=== PATIENT | female | born 1970 | race Caucasian/White ===

== ENCOUNTER 2022-05-24 12:45 | Emergency (ER) | payer BC, SELFPAY ==
[2022-05-24 13:02] VITALS: BP 159/97; PULSE 99; RESP 18; TEMP 36.8; O2SAT 95; BMI 23.6
--- NOTE | 2022-05-24 13:15 | W.ED.GENADLT ---
HPI - General Adult General: Chief complaint: General Medical Stated complaint: chest hurts and right leg hurts also. Time Seen by Provider: 05/24/22 13:14 History of Present Illness: Patient is a 52-year-old female w/ a family hx of factor 5 leiden deficiecy presents the emergency room with complaints of constipation, difficulty sleeping, inability to take full breath, abdominal bloating, and fatigue for the last month. Patient tells me that since a month ago, patient has had irregular stooling. Patient never had any abdominal symptoms including cramps, bloating however has been having symptoms in the last month. Earlier this week, patient noticed that she was constipated and took some milk of magnesia along with an enema with relief of symptoms. Patient denies any diarrhea melena hematochezia. Patient tells me that she has had decreased appetite during this time. In addition, over the last week, patient reports inability to take a full breath. Patient is followed by [facility]. Recent PCP recently started patient on doxycycline since patient has had recent tick exposure in the last month. Patient has not noticed any rash, vomiting or body aches or chills. However, patient took 2 days worth of doxycycline however cannot hold it down anymore due to upset stomach. Patient denies any prior abdominal surgery, no urinary complaints or true renal colic. Patient has any cough, runny nose, sore throat, or chest pain. Patient in the past has had a DVT during her 20 years ago. Patient is currently not on any blood thinner. Patient has never been formally diagnosed for factor V Leiden deficiency. Onset: 1 month ago Duration:1 month Location:home Severity:moderate Associated symptoms: Deny chest pain, dyspnea, nausea, rash, palpitations or vomiting Review of Systems Const: Denies: fever(s) or chills Eyes: Denies: change in vision ENMT: Denies: mouth pain Card: Denies: chest pain or palpitations Resp: Reports: other (+inability to take a full breath); Denies: dyspnea or non-productive cough GI: Reports: other (+constipation, abdominal discomfort and bloating, decreased appetite); Denies: abdominal pain, nausea, vomiting or diarrhea : Denies: dysuria Musc: Denies: extremity pain Skin/Breast: Denies: rash or new lesions Neuro: Denies: weakness in extremities Psych: Reports: other (Normal mood) Michael/Lymph: Denies: easy bruising PFSH ED PFSH: Medical History DVT (deep venous thrombosis) Family History Other Clotting disorder Social History Smoking and tobacco status: never smoked Alcohol intake: never Physical Exam Const: COMMON NORMALS: alert HENMT: COMMON NORMALS: atraumatic HEAD & SCALP: atraumatic MOUTH: moist mucous membranes not abnormal Eye: COMMON NORMALS: EOMs intact bilaterally and conjunctivae normal CONJUNCTIVA: Yes conjunctivae normal Neck/C-Spine: COMMON NORMALS: full ROM and supple Resp: COMMON NORMALS: normal respiratory effort and clear to auscultation bilaterally AUSCULTATION: clear to auscultation bilaterally Cardio: COMMON NORMALS: regular rate RATE: regular rate OTHER: 2+ radial pulses b/l GI: COMMON NORMALS: Soft to palpation and non-tender PALPATION: Yes Soft to palpation OTHER: No focal TTP. NO guarding rebound, guarding, rigidity. No CVA tenderness to percussion. Neg Lebron/Neg McBurney's point tenderness, no suprabupic tenderness to palpation. Extremity: COMMON NORMALS: full ROM OTHER: No colby's signs b/l Neuro: SENSORIUM/ORIENTATION: Yes alert MOTOR EXAM: No Abnormal motor strength present and Other motor observations present (no focal motor deficits) Psych: COMMON NORMALS: speech normal SPEECH: Yes normal speech MOOD & AFFECT: Yes euthymic mood Course Vital Signs: Vital signs: Vital Signs Temperature 98.2 F 05/24/22 13:02 Pulse Rate 77 05/24/22 18:18 Respiratory Rate 18 05/24/22 13:02 Blood Pressure 134/85 05/24/22 18:18 Pulse Oximetry 98 05/24/22 18:18 Oxygen Delivery Me thod 05/24/22 13:02 [facility] - General Adult Medical Decision Making Patient is a 52-year-old female w/ a family hx of factor 5 leiden deficiecy presents the emergency room with complaints of constipation, difficulty sleeping, inability to take full breath, abdominal bloating, and fatigue for the last month. No suspicion for other acute intra-abdominal pathology including SBO, biliary pathology, appendicitis, diverticulitis, or other emergent condition requiring surgery. Doubt ACS/PE or other emergent causes of chest pain patient has unremarkable troponin. Her chest XR appears to be clear. D-dimer within normal limit. We will send tick panel per request of patient. I have given patient follow up with our therapeutic case manager to be seen by our outpatient by Dr. Steven Burrell to establish care. Patient aware of a call from our therapeutic case manager to schedule for appointment(s) and verbalizes understanding of the importance of following up. Rx tylenol PRN abd pain, maalox/pepcid PRN dyspepsia, and zofran PRN nausea/vomiting Disposition: Discharge. Patient counseled regarding diagnostic impression, treatment plan. Patient given ED strict return precautions to return for continuation, worsening, or development of new symptoms. Instructed to f/u w/ PCP regarding symptoms today. Patient verbalized understanding. Lab Data : 05/24/22 14:10 05/24/22 14:10 Radiology Impressions Chest X-Ray 05/24/22 13:55 IMPRESSION: No acute findings. Laboratory Results WBC 10.8 10^3/uL (4.0-10.0) H 05/24/22 14:10 RBC 4.94 10^6/uL (4.1-5.3) 05/24/22 14:10 Hgb 15.0 g/dL (11.5-15.3) 05/24/22 14:10 Hct 44.1 % (37.0-47.0) 05/24/22 14:10 MCV 89.3 fl (81-99) 05/24/22 14:10 MCH 30.4 pg (28.0-34.0) 05/24/22 14:10 MCHC 34.0 g/dL (30.0-36.0) 05/24/22 14:10 RDW 12.4 % (12.1-15.1) 05/24/22 14:10 Plt Count 371 10^3/cmm (130-400) 05/24/22 14:10 MPV 9.9 fL (7.4-10.4) 05/24/22 14:10 Neut % (Auto) 67.6 % 05/24/22 14:10 Lymph % (Auto) 24.0 % 05/24/22 14:10 [place] % (Auto) 7.7 % 05/24/22 14:10 Eos % (Auto) 0.1 % 05/24/22 14:10 Baso % (Auto) 0.4 % 05/24/22 14:10 Neut # (Auto) 7.32 10^3/uL (1.8-7.7) 05/24/22 14:10 Lymph # (Auto) 2.6 10^3/uL (0.8-4.8) 05/24/22 14:10 [place] # (Auto) 0.8 10^3/uL (0.2-0.9) 05/24/22 14:10 Eos # (Auto) 0.0 10^3/uL (0.0-0.8) 05/24/22 14:10 Baso # (Auto) 0.0 10^3/uL (0.0-0.1) 05/24/22 14:10 Nucleated RBC % (auto) 0 % 05/24/22 14:10 Nucleated RBCs # 0.0 /100WBC 05/24/22 14:10 D-Dimer 0.36 ug/mIFEU (0-0.59) 05/24/22 14:10 Sodium 136 mmol/L (136-145) 05/24/22 14:10 Potassium 4.1 mmol/L (3.5-5.1) 05/24/22 14:10 Chloride 95 mmol/L (98-107) L 05/24/22 14:10 Carbon Dioxide 28 mmol/L (22-29) 05/24/22 14:10 Anion Gap 17.1 (5-19) 05/24/22 14:10 BUN 16 mg/dL (6-20) 05/24/22 14:10 Creatinine 0.7 mg/dL (0.5-0.9) 05/24/22 14:10 GFR Calculation 88.6 mL/min (90-130) L 05/24/22 14:10 Glucose 85 mg/dL (65-115) 05/24/22 14:10 Calculated Osmolality 282 mOsm/kg (285-295) L 05/24/22 14:10 Calcium 10.1 mg/dL (8.5-10.5) 05/24/22 14:10 Total Bilirubin 0.5 mg/dL (0.15-1.2) 05/24/22 14:10 AST 13 U/L (0-32) 05/24/22 14:10 ALT 11 U/L (0-33) 05/24/22 14:10 Alkaline Phosphatase 103 U/L (35-105) 05/24/22 14:10 Troponin T Baseline 6 ng/L (0-10) 05/24/22 14:10 Total Protein 7.9 g/dL (6.6-8.7) 05/24/22 14:10 Albumin 4.9 g/dL (3.5-5.2) 05/24/22 14:10 Globulin 3.0 g/dL (1.3-4.6) 05/24/22 14:10 Lipase 15 U/L (13-60) 05/24/22 14:10 Imaging Data Other Imaging: Radiologist's impression: [address] [address] XRay Report Signed Patient: Ashley Jonas Unit #: [id number] : 1970 Age/Sex: 52 / F ADM Date: 05/24/22 Loc: ER Room/Bed: Attending Dr: Ordering Provider/Ordering MD: Angeline Shaw MD Date of Service: 05/24/22 Procedure(s): XR chest 1V portable [id number] Accession Number(s): [id number] Report Number: [id number] PROCEDURE INFORMATION: Exam: XR Chest Exam date and time: 05/24/2022 2:00 PM Age: 52 years old Clinical indication: Dyspnea TECHNIQUE: Imaging protocol: Radiologic exam of the chest. Views: 1 view. COMPARISON: No relevant prior studies available. FINDINGS: Lungs: Unremarkable. No consolidation. Pleural spaces: Unremarkable. No pleural effusion. No pneumothorax. Heart/Mediastinum: Unremarkable. No cardiomegaly. Bones/joints: Unremarkable. XR/XR chest 1V portable [id number] IMPRESSION: No acute findings. ? Dictated By: Parveen Dickinson Signed By: Parveen Dickinson Signed Date/Time: 05/24/22 1424 DD/ 1400 Discharge Plan Discharge Patient Disposition: Home Clinical Impression: Abdominal discomfort, Decrease in appetite, Dyspnea, Constipation Condition: Stable Prescriptions: New acetaminophen 500 mg tablet 500 mg PO Q6H PRN (Reason: pain) 5 Days Qty: 20 0RF ondansetron 4 mg tablet,disintegrating 4 mg PO TID PRN (Reason: nausea and vomiting) 4 Days Qty: 12 0RF Maalox Advanced 1,000-60 mg tablet,chewable 1 tab PO TID PRN (Reason: abdominal pain) 7 Days Qty: 21 0RF Pepcid 20 mg tablet 20 mg PO BID PRN (Reason: abdominal pain) 10 Days Qty: 20 0RF No Action doxycycline hyclate 100 mg capsule 100 mg PO BID tizanidine 4 mg tablet 4 mg PO Q8H PRN (Reason: Muscle Spasm) zolpidem 10 mg tablet 10 mg PO BEDTIME rosuvastatin 10 mg tablet 10 mg PO DAILY doxycycline hyclate 100 mg tablet,delayed release (DR/EC) 100 mg PO BID dexmethylphenidate 30 mg capsule,ER biphasic 50-50 30 mg PO DAILY [employer] 1.5 billion cell Capsule 1 cap PO DAILY ashley root extract 50 mg Tablet 50 mg PO DAILY Discharge Orders: Discharge ED (Routine); Ordered 05/24/22 Ordered By: Angeline Shaw Discharge Diet: Advance as tolerated Discharge Activity: Increase activity as tolerated Patient Instructions: Abdominal Pain (ED) Activity Restrictions/Additional Instructions: Please come back if you have any worsening abdominal pain, fever or chills, nausea or vomiting, diarrhea, blood in the stool, inability hold down liquid or solids, or any new concerning complaints. Our therapeutic case manager will have you follow-up with Dr. Steven Burrell in the next few days to establish care. You would be expected to have a phone call with our therapeutic case manager who will put you on the schedule. You can expect a call from us in the next 2-3 days. If you don't hear from us, call us back in the emergency room at [phone]. Coding Level of Care Code ED Director Of Physical Education for Bobbi Hughes Exam Comprehensive
--- NOTE | 2022-05-24 13:55 | ECG_ITS ---
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 Measurements Intervals [place] Rate: 78 P: 56 IL: 158 QRS: 61 QRSD: 81 T: 74 QT: 356 QTc: 406 Interpretive Statements SINUS RHYTHM No previous ECG available for comparison Electronically Signed On 05-24-2022 20:54:41 CDT by Anabell Stone M.D. [id number]
--- NOTE | 2022-05-24 13:55 | XRR_ITS ---
PROCEDURE INFORMATION: Exam: XR Chest Exam date and time: 05/24/2022 2:00 PM Age: 52 years old Clinical indication: Dyspnea TECHNIQUE: Imaging protocol: Radiologic exam of the chest. Views: 1 view. COMPARISON: No relevant prior studies available. FINDINGS: Lungs: Unremarkable. No consolidation. Pleural spaces: Unremarkable. No pleural effusion. No pneumothorax. Heart/Mediastinum: Unremarkable. No cardiomegaly. Bones/joints: Unremarkable. XR/XR chest 1V portable [id number] IMPRESSION: No acute findings.
--- NOTE | 2022-05-24 14:12 | PC.NURSE ---
pt c/o intermittent left chest pain for the last month, malaise, and nausea. denies recent illness but has been feeling unwell since March. lung sounds clear bilat. bowel sounds present. skin pink/warm/dry. speech clear. speaking in complete sentences without difficulty.
[2022-05-24 14:38] LABS: Basophils % 0.4 %; Eosinophils % 0.1 %; Hematocrit 44.1 % (37.0-47.0); Lymphocytes # 2.6 10^3/uL (0.8-4.8); Mean Corpuscular Hemoglobin 30.4 pg (28.0-34.0); Mean Corpuscular Volume 89.3 fl (81-99); Mean Platelet Volume 9.9 fL (7.4-10.4); Monocytes # 0.8 10^3/uL (0.2-0.9); Monocytes % 7.7 %; Neutrophils # 7.32 10^3/uL (1.8-7.7); Neutrophils % 67.6 %; Nucleated Red Blood Cells % 0 %; Platelet Count 371 10^3/cmm (130-400); Red Blood Count 4.94 10^6/uL (4.1-5.3); Red Cell Distribution Width 12.4 % (12.1-15.1); White Blood Count 10.8 10^3/uL (4.0-10.0)
[2022-05-24 14:59] LABS: D Dimer 0.36 ug/mIFEU (0-0.59)
[2022-05-24 15:03] LABS: Troponin(5th) Baseline 6 ng/L (0-10)
[2022-05-24 15:04] LABS: Alanine Aminotransferase 11 U/L (0-33); Albumin Level 4.9 g/dL (3.5-5.2); Alkaline Phosphatase 103 U/L (35-105); Anion Gap 17.1 (5-19); Aspartate Amino Transferase 13 U/L (0-32); Blood Urea Nitrogen 16 mg/dL (6-20); Calcium 10.1 mg/dL (8.5-10.5); Carbon Dioxide 28 mmol/L (22-29); Chloride 95 mmol/L (98-107); Glomerular Filtration Rate 88.6 mL/min (90-130); Glucose 85 mg/dL (65-115); Lipase 15 U/L (13-60); Osmolality Calculated 282 mOsm/kg (285-295); Potassium 4.1 mmol/L (3.5-5.1); Sodium 136 mmol/L (136-145); Total Bilirubin 0.5 mg/dL (0.15-1.2); Total Protein 7.9 g/dL (6.6-8.7)
--- NOTE | 2022-05-24 15:05 | DCPLANNER ---
Addendum entered by Irene Estrada 08/18/22 14:25: Patient had a follow up appointment scheduled with internal medicine - patient did not attend appointment. Addendum entered by Irene Estrada 05/26/22 13:15: Patient has a follow up appointment scheduled for , june 15, 2022 at 9:[address] Del Rio at Internal Medicine. Clinic will call patient with appointment information. Original Note: manager roofing had message to schedule a follow up appointment for patient with Dr. Del Rio. manager roofing sent patients information to the front office staff at Internal Medicine. Patients information will be printed and reviewed. Clinic will call patient with appointment information.
--- NOTE | 2022-05-24 15:55 | ECG_ITS ---
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 Measurements Intervals [place] Rate: 70 P: 72 RI: 190 QRS: 57 QRSD: 85 T: 74 QT: 389 QTc: 420 Interpretive Statements SINUS RHYTHM Compared to ECG 05/24/2022 14:07:20 No significant changes Electronically Signed On 05-24-2022 20:59:41 CDT by Anabell Stone M.D. [id number]
[2022-05-24] MEDS: lidocaine 2% viscous 15 ML, aluminum-mag hydrox-simethicon 30 ML, sucralfate oral liq 1 GM PO (16:31)
[2022-05-24] MEDS: sodium chloride 0.9% 1,000 ML 999 ML IV (16:35)
[2022-05-24 18:18] VITALS: BP 134/85; PULSE 77; O2SAT 98
[2022-05-25 14:19] LABS: Lyme AB Screen <0.90 index
[2022-05-27 21:47] LABS: E. Chaffeensis AB IGG <1:64; E. Chaffeensis AB IGM <1:20
[2022-05-30 17:36] LABS: RMSF IGG DETECTED; RMSF IGM NOT DETECTED
== END 2022-05-24 18:20 | disposition home or self-care (01) ==
PROVIDERS: Emergency Provider Emergency Medicine
DX: K59.00 Constipation, unspecified (principal); R06.00 Dyspnea, unspecified; R63.0 Anorexia
CPT/HCPCS: 71045; 80053; 83690; 84484; 85025; 85378; 86618; 86666; 86757; 93005; 99285; J7030